=== PATIENT | male | born 1940 | race Caucasian/White ===

== ENCOUNTER 2023-06-26 12:53 | Outpatient (RCR) | payer OTHER, SELFPAY | END 2023-06-26 23:59 | disposition home or self-care (01) | LOC: RST 12:53 | PROVIDERS: ATTENDING PHYSICIAN Otolaryngology; FAMILY PHYSICIAN Internal Medicine | DX: R13.19 Other dysphagia (principal); R13.14 Dysphagia, pharyngoesophageal phase; E03.9 Hypothyroidism, unspecified | CPT/HCPCS: 92610 ==

== ENCOUNTER → 2023-07-17 08:45 | Outpatient (REF) | payer OTHER, SELFPAY | LOC: RAD 08:45 | PROVIDERS: ATTENDING PHYSICIAN Internal Medicine | DX: R13.10 Dysphagia, unspecified (principal) | CPT/HCPCS: 74221 ==

== ENCOUNTER → 2023-07-31 08:27 | Outpatient (REF) | payer OTHER, SELFPAY | LOC: HWRAD 08:27 | PROVIDERS: ATTENDING PHYSICIAN Internal Medicine | DX: I77.89 Other specified disorders of arteries and arterioles (principal) | CPT/HCPCS: 71275; Q9967 ==

== ENCOUNTER 2023-09-05 11:02 | Outpatient (RCR) | payer OTHER, SELFPAY | END 2023-09-05 23:59 | disposition home or self-care (01) | LOC: RST 11:02 | PROVIDERS: ATTENDING PHYSICIAN Otolaryngology; FAMILY PHYSICIAN Internal Medicine | DX: R13.19 Other dysphagia (principal); R13.14 Dysphagia, pharyngoesophageal phase; E03.9 Hypothyroidism, unspecified | CPT/HCPCS: 92526 ==

== ENCOUNTER → 2023-09-15 14:41 | Outpatient (REF) | payer OTHER, SELFPAY | LOC: PAVMRI 14:41 | PROVIDERS: ATTENDING PHYSICIAN Specialist; FAMILY PHYSICIAN Internal Medicine | DX: R47.02 Dysphasia (principal) | CPT/HCPCS: 70551 ==

== ENCOUNTER 2023-09-25 13:31 | Outpatient (RCR) | payer OTHER, SELFPAY | END 2023-09-25 23:59 | disposition home or self-care (01) | LOC: RST 13:31 | PROVIDERS: ATTENDING PHYSICIAN Otolaryngology; FAMILY PHYSICIAN Internal Medicine | DX: R13.19 Other dysphagia (principal); E03.9 Hypothyroidism, unspecified; R13.14 Dysphagia, pharyngoesophageal phase | CPT/HCPCS: 92526 ==

== ENCOUNTER → 2023-10-22 08:49 | Outpatient (REF) | payer OTHER, SELFPAY | LOC: HWRAD 08:49 | PROVIDERS: ATTENDING PHYSICIAN Internal Medicine | DX: R60.0 Localized edema (principal) | CPT/HCPCS: 93970 ==

== ENCOUNTER 2023-11-06 13:36 | Outpatient (RCR) | payer OTHER, SELFPAY | END 2023-11-06 23:59 | disposition home or self-care (01) | LOC: RST 13:36 | PROVIDERS: ATTENDING PHYSICIAN Otolaryngology; FAMILY PHYSICIAN Internal Medicine | DX: R13.19 Other dysphagia (principal); E03.9 Hypothyroidism, unspecified; R13.14 Dysphagia, pharyngoesophageal phase | CPT/HCPCS: 92526 ==

== ENCOUNTER 2023-12-18 13:46 | Outpatient (RCR) | payer OTHER, SELFPAY | END 2023-12-18 23:59 | disposition home or self-care (01) | LOC: RST 13:46 | PROVIDERS: ATTENDING PHYSICIAN Otolaryngology; FAMILY PHYSICIAN Internal Medicine | DX: R13.14 Dysphagia, pharyngoesophageal phase (principal); E03.9 Hypothyroidism, unspecified | CPT/HCPCS: 92526 ==

== ENCOUNTER → 2024-04-27 11:06 | Outpatient (REF) | payer OTHER, SELFPAY | LOC: HWRAD 11:06 | PROVIDERS: ATTENDING PHYSICIAN Internal Medicine | DX: M25.552 Pain in left hip (principal) | CPT/HCPCS: 73502 ==

== ENCOUNTER → 2024-08-03 09:10 | Outpatient (REF) | payer OTHER, SELFPAY | LOC: HWRAD 09:10 | PROVIDERS: ATTENDING PHYSICIAN Internal Medicine; FAMILY PHYSICIAN Internal Medicine | DX: E87.1 Hypo-osmolality and hyponatremia (principal); N18.31 Chronic kidney disease, stage 3a | CPT/HCPCS: 76770 ==

== ENCOUNTER → 2024-08-05 14:03 | Outpatient (REF) | payer OTHER, SELFPAY | LOC: RAD 14:03 | PROVIDERS: ATTENDING PHYSICIAN Internal Medicine | DX: I77.89 Other specified disorders of arteries and arterioles (principal) | CPT/HCPCS: 71275; Q9967 ==